=== PATIENT | male | born 1945 | race Caucasian/White ===

== ENCOUNTER → 2025-01-12 14:07 | Outpatient (CLI) | payer OTHER, SELFPAY ==
--- NOTE | 2025-01-12 14:09 | DI.ECHO.S_ITS ---
[facility] : : [address] : : [place] : : [id number] : : Phone: [phone] Echocardiogram Report + + :Name: DURAN ALBARRAN Study Date: 01/12/2025 Height: 71 in : :[facility] ReadingLocation: Weight: 251 lb : : Gender: Male BSA: 2.3 m2 : :: 1945 Age: 79 yrs BP: 163/95 mmHg: :Reason For Study: Arrhythmia : :Ordering Physician: GABRIELA, : :JUDE Performed By: Sylvie Kelley : :Referring: JUDE OCHOA : + + Interpretation Summary The patient was in atrial fibrillation with heart rates between 72-85 bpm during the exam. The left ventricle is mildly dilated. The ejection fraction is estimated to be 60-65%. The left atrium is severely dilated. The right ventricle is normal size. Right ventricular systolic function is mildly reduced. The right atrium is moderately dilated. There is mild to moderate mitral regurgitation. There is mild tricuspid regurgitation. The right ventricular systolic pressure is estimated to be at least 45 mmHg based on an estimated right atrial pressure of 8 mm Hg. Procedure: A two-dimensional transthoracic echocardiogram with color flow and Doppler was performed. The study quality was technically adequate. There is no prior echocardiogram noted for this patient. The patient was in atrial fibrillation with heart rates between 72-85 bpm during the exam. Left Ventricle: The left ventricle is mildly dilated. Proximal septal thickening is noted. The ejection fraction is estimated to be 60-65%. Diastolic function could not be accurately assessed due to atrial fibrillation. Right Ventricle: The right ventricle is normal size. Right ventricular systolic function is mildly reduced. Atria: The left atrium is severely dilated. The right atrium is moderately dilated. The interatrial septum grossly appears intact with no obvious evidence for an atrial septal defect. Mitral Valve: The mitral valve leaflets appear mildly thickened. There is mild to moderate mitral regurgitation. Aortic Valve: The aortic valve is trileaflet. The aortic valve opens well. The aortic valve is moderately calcified. There is no aortic valve stenosis. There is trace aortic regurgitation. Tricuspid Valve: The tricuspid valve leaflets are thin and pliable. There is mild tricuspid regurgitation. The right ventricular systolic pressure is estimated to be at least 45 mmHg based on an estimated right atrial pressure of 8 mm Hg. Pulmonic Valve: The pulmonic valve is not well seen, but is grossly normal. There is a trace or physiologic amount of pulmonic regurgitation. Great Vessels: The aortic root is normal size. The ascending aorta is at the upper limits of normal in size. The aortic arch is normal in size. The IVC is dilated (diameter is greater than 2.1 cm) yet it collapses greater than 50% with a sniff. This suggests a right atrial pressure of 8 mm Hg. Pericardium/ Pleura There is no pericardial effusion. There is no pleural effusion. MMode/2D Measurements & Calculations LVIDd: 6.0 cm LVOT diam: 2.6 cm LVIDs: 3.5 cm Ao root diam: 3.9 cm FS: 42.2 % asc Aorta Diam: 4.0 cm EPSS: 0.47 cm Ao Arch Diam (Prox Trans): 3.2 cm IVSd: 1.4 cm LVPWd: 1.0 cm LV young. diameter/BSA (cm/m^2): 2.6 LV sys. diameter/BSA (cm/m^2): 1.5 LA A2 area: 34.9 cm2 RA long axis: 7.2 cm LA A4 area: 37.2 cm2 RA area: 26.2 cm2 LA length (vol): 7.7 cm RA vol: 81.6 ml LA vol: 143.5 ml RA : 35.1 ml/m2 LA vol index: 61.7 ml/m2 IVC diam: 2.4 cm TAPSE: 1.6 cm Doppler Measurements & Calculations Ao V2 max: 139.0 cm/sec LVOT Max Tristan: 75.4 cm/sec Ao V2 mean: 95.8 cm/sec LV V1 max P.3 mmHg Ao max P.7 mmHg LV V1 VTI: 15.9 cm Ao mean P.2 mmHg DUSTY(I,D): 3.0 cm2 Ao V2 VTI: 27.9 cm DUSTY(V,D): 2.9 cm2 sev ratio: 0.57 DUSTY indexed to BSA (cm^2/m^2): 1.3 MV E max tristan: 100.2 cm/sec TR max tristan: 296.8 cm/sec MV A max tristan: 31.7 cm/sec TR max P.3 mmHg MV E/A: 3.2 PA V2 max: 67.8 cm/sec Med Peak E' Tristan: 7.5 cm/sec PA V2 mean: 41.1 cm/sec E/E' med: 13.4 PA mean P.84 mmHg Lat Peak E' Tristan: 14.5 cm/sec PA pr(Accel): 24.2 mmHg E/E' lat: 6.9 E/e' average: 10.2 MV dec time: 0.18 sec SV(OT): 84.7 ml Reading Physician:07:23 PM
== END ==
LOC: ECHO 14:09
PROVIDERS: PCP Internal Medicine; Referring Provider Internal Medicine Cardiovascular Disease; Visit Provider Internal Medicine Cardiovascular Disease
DX: I08.1 Rheumatic disorders of both mitral and tricuspid valves (principal); I25.810 Atherosclerosis of coronary artery bypass graft(s) without angina pectoris
CPT/HCPCS: 93306